=== PATIENT | female | born 1950 | race Caucasian/White ===

== ENCOUNTER 2016-11-25 16:50 | Emergency (ER) | payer OTHER | END 2016-11-25 20:15 | disposition home or self-care (01) | LOC: ER 16:50 | DX: M25.572 Pain in left ankle and joints of left foot (principal); F17.210 Nicotine dependence, cigarettes, uncomplicated; Z79.899 Other long term (current) drug therapy | CPT/HCPCS: 73610; 73630; 99070; 99283 ==